=== PATIENT | female | born 1965 | race Caucasian/White ===

== ENCOUNTER 2023-05-25 09:33 | Emergency (ER) | payer OTHER, SELFPAY ==
[2023-05-25 09:38] VITALS: BP 182/102; PULSE 70; RESP 17; TEMP 36.6; O2SAT 94; BMI 41.6
--- NOTE | 2023-05-25 10:18 | XR_ITS ---
The [address] [address] Patient Name: MILANA PINK MRN: [id number] date: 1965 Sex: F Assigned Patient Location: ED.MAIN Current Patient Location: ER Accession/Order Number: [id number] Exam Date: 05/25/2023 10:10 Report Date: 05/25/2023 11:15 At the request of: CAROLIEN OLSEN Procedure: XR ribs LT min 3V w CXR1V XR ribs LT min 3V w CXR1V CLINICAL HISTORY: fall, left torso/rib injury. COMPARISON: None Available. TECHNIQUE: 3 views left ribs. Single upright view of the chest. FINDINGS: The lungs are clear. No pleural effusion or pneumothorax. Cardiomediastinal silhouette size is normal. No acute bony process. Left ribs appear intact. IMPRESSION: No acute cardiopulmonary process. Electronically authenticated by: PERI MEDINA Date: 05/25/2023 11:15
--- NOTE | 2023-05-25 10:24 | ED_ITS ---
HPI - General Adult General Chief complaint: Chest Pain Stated complaint: RIB/UPPER CHEST PAIN FALL Time Seen by Provider: 05/25/23 09:47 Source: patient Mode of arrival: walk-in Limitations: no limitations History of Present Illness HPI narrative: fell on 05/21/23 and landed onto her left torso. She has been experiencing pain along the left ribs and upper left chest since then - has been taking ES Tylenol for pain. She also scraped the ulnar aspect of the left 5th finger - she has been applying topical antibiotic ointment to that. No head injury or LOC. NO injury to the neck or back Related Data Previous Rx's Medication Instructions Recorded methocarbamol 750 mg tablet 750 mg PO Q6H PRN rib pain #30 tabs 05/25/23 nabumetone 750 mg tablet 750 mg PO .q12hr PRN pain #20 tabs 05/25/23 Allergies Allergy/AdvReac Type Severity Reaction Status Date / Time Penicillins Allergy Intermediate Rash Verified 05/25/23 09:38 Sulfa (Sulfonamide Allergy Intermediate Rash Verified 05/25/23 09:38 Antibiotics) PFSH [facility] Social History Smoking status: Never smoker Exam Narrative Exam Narrative: Nurses note and vital signs reviewed and patient is not hypoxic. afebrile General: The patient appears well and in no apparent distress. Patient is resting comfortably on cart. GCS = 15. Skin: Warm, dry, no pallor noted. Head: Normocephalic, atraumatic Neck: Supple, trachea mid-line. Full ROM and no cervical spinal tenderness. Eyes: PERRLA, EOMI Cardiovascular: Regular Rate and Rhythm Respiratory: Patient is in no distress, no accessory muscle use, lungs are clear to auscultation, no wheezing, rales or rhonchi Chest Wall: left anterior and lateral rib/torso tenderness without flail chest, contusion, abrasion, or external signs of trauma aside from tenderness. Back: No thoracic or lumbar tenderness to palpation. Musculoskeletal: no sign of long bone fracture GI: Normal bowel sounds, no tenderness to palpation, no masses appreciated. No rebound, guarding, or rigidity noted. Neurological: A&O x4, normal equal architectural designer strength, normal finger to nose, normal speech, normal coordination, normal motor, normal sensory. Psychiatric: Cooperative Constitutional Vital Signs - 24 hr 05/25/23 09:38 Temperature 97.8 F Pulse Rate [Monitor] 70 Respiratory Rate 17 Blood Pressure [Right Arm] 182/102 H Pulse Oximetry 94 L Oxygen Delivery Method Room Air Course Vital Signs Vital signs: Vital Signs Temperature 97.8 F 05/25/23 09:38 Pulse Rate 70 05/25/23 09:38 Respiratory Rate 17 05/25/23 09:38 Blood Pressure 182/102 H 05/25/23 09:38 Pulse Oximetry 94 L 05/25/23 09:38 Oxygen Delivery Method Room Air 05/25/23 09:38 Temperature 97.8 F 05/25/23 09:38 Pulse Rate 70 05/25/23 09:38 Respiratory Rate 17 05/25/23 09:38 Blood Pressure 182/102 H 05/25/23 09:38 Pulse Oximetry 94 L 05/25/23 09:38 Oxygen Delivery Method Room Air 05/25/23 09:38 Medical Decision Making MDM Narrative Medical decision making narrative: no acute fractures identified on xrays of the left ribs and chest. The patient was given reassurance and prescribed relafen and robaxin to take at home. PCP follow up recommended or ED return if she worsens. Imaging Data xr ribs & chest: Radiologist's impression: Patient Name: MILANA PINK MRN: [facility]:[id number] date: 1965 Sex: F Assigned Patient Location: ED.MAIN Current Patient Location: ER Accession/Order Number: [id number] Exam Date: 05/25/2023 10:10 Report Date: 05/25/2023 11:15 At the request of: CAROLINE OLSEN Procedure: XR ribs LT min 3V w CXR1V XR ribs LT min 3V w CXR1V CLINICAL HISTORY: fall, left torso/rib injury. COMPARISON: None Available. TECHNIQUE: 3 views left ribs. Single upright view of the chest. FINDINGS: The lungs are clear. No pleural effusion or pneumothorax. Cardiomediastinal silhouette size is normal. No acute bony process. Left ribs appear intact. IMPRESSION: No acute cardiopulmonary process. Electronically authenticated by: PERI MEDINA Date: 05/25/2023 11:15 Discharge Plan Discharge Chief Complaint: Chest Pain Clinical Impression: Contusion of ribs Patient Disposition: Home, Self-Care Time of Disposition Decision: 11:23 Prescriptions / Home Meds: New methocarbamol 750 mg tablet 750 mg PO Q6H PRN (Reason: rib pain) Qty: 30 0RF nabumetone 750 mg tablet 750 mg PO .q12hr PRN (Reason: pain) Qty: 20 0RF Instructions: Rib Contusion (ED) Stand Alone Forms: Portal Instructions Referrals: Physician,Non-Staff, MD [Primary Care Provider] - 1 week
== END 2023-05-25 11:33 | disposition home or self-care (01) ==
PROVIDERS: Emergency Provider Emergency Medicine
DX: S20.212A Contusion of left front wall of thorax, initial encounter (principal); W19.XXXA Unspecified fall, initial encounter
CPT/HCPCS: 71101; 99283